=== PATIENT | male | born 1990 | race Caucasian/White ===

== ENCOUNTER 2021-07-13 07:29 | Inpatient (IN) ==
--- NOTE | 2021-07-04 12:52 | Anesthesiology Consultation ---
Date of Service July 04, 2021 Assessment & Plan (1) Encounter for pre-operative examination: Chart Review Chart Review: Acceptable Risk for Surgery and Patient NOT seen in Pre Admission Testing Consults Requested none History Surgery Operation Date: 07/13/21 07:15 Proposed Procedures s Left Ankle Triple Arthrodesis with Autograft, Autograft [place] - Mc Scott DO p Removal of Hardware (4.0 Cannulated) - Mc Scott DO s Percutaneous Tendon Achilles Lengthening - Mc Scott DO Height/Weight Height: 5 ft 10 in Weight: 86.183 kg Allergies Allergy/AdvReac Type Severity Reaction Status Date / Time No Known Allergies Allergy Verified 07/04/21 08:35 Medications Home Medications Medication Instructions Recorded Confirmed Last Taken Garlic Otc 2 tab PO QPM 07/04/21 07/04/21 Unknown ibuprofen 200 mg tablet 200 mg PO Q6H PRN 07/04/21 07/04/21 Unknown zinc 50 mg tablet 50 mg PO QPM 07/04/21 07/04/21 Unknown Past Medical History Medical History No known health problems Past Family History Family History Mother Family history of diabetes mellitus Past Surgical History Surgical History History of foot surgery LEFT Social History Smoking Status: Current every day smoker Smoking cigarettes per day: 10 CIGS A DAY Do You Dip or Chew Tobacco: No Hx Alcohol Use: No Hx Substance Use: No
--- NOTE | 2021-07-12 08:50 | History & Physical Report ---
Date of Service July 12, 2021 Assessment & Plan (1) Traumatic arthritis of left foot: Plan: Schedule a left triple arthrodesis with autografting, removal hardware from navicular and cuboid, autograft harvest calcaneus, perc. JENNI for 07.13.21. All potential risks, benefits, complications, alternatives, and rehab have been discussed with the patient and he wishes to proceed. Will plan for ASA 81 mg BID x 4 wks for post operative DVT prophylaxis. (2) Retained orthopedic hardware: (3) Achilles tendon contracture, left: History of Present Illness Chief Complaint: left foot pain Primary Care Provider: NO PCP This is a patient who sustained a left foot injury in 2008 and underwent an ORIF of the navicular and cuboid bone fx's. He progressed well but over the past couple of years, the pain has worsened. He had recent x-rays and a CT scan that confirmed healed fx's and hindfoot DJD. He is now being set up for surgical tx. Allergies Allergy/AdvReac Type Severity Reaction Status Date / Time No Known Allergies Allergy Verified 07/04/21 08:35 Home Medications Medication Instructions Recorded Confirmed Type Garlic Otc 2 tab PO QPM 07/04/21 07/04/21 History ibuprofen 200 mg tablet 200 mg PO Q6H PRN 07/04/21 07/04/21 History zinc 50 mg tablet 50 mg PO QPM 07/04/21 07/04/21 History Past Med/Surg History Medical History No known health problems Surgical History History of foot surgery LEFT Family History Mother Family history of diabetes mellitus Social History (Updated 07/04/21 @ 08:57 by Quin Wells RN) Smoking Status: Current every day smoker Cigarettes Per Day: 10 CIGS A DAY; Second Hand Exposure: No; Hx Alcohol Use: No Hx Substance Use: No Preferred Language: [place]ian Communication Ability: Effective Plastics Technician Required: No Beliefs That Will Affect Care: None Current Living Situation: Spouse and Family Current Living Situation Comment: LIVES WITH SPOUSE, 2 SONS current occupational status: employed current occupation: SELF EMPLOYED HOUSE CONSTRUCTION Feels Safe at Home: Yes Assistive Devices: Denture - Upper and Denture - Lower Physical Exam Constitutional: well developed and well nourished; no acute distress ENMT: external ear and nose normal, oropharynx normal Neck: trachea midline Respiratory: normal respiratory effort, lungs clear to auscultation Cardiovascular: Rate/Rhythm: regular rate and regular rhythm Gastrointestinal (Abdomen): normal bowel sounds, soft, nontender, no hepat osplenomegaly Musculoskeletal: Ankle: + surgical incision (left: healed surgical incisions), + limited ROM of ankle (left with dorsiflexion, inversion, eversion) and + joint line tenderness (ankle) (left talonavicular, calcaneocuboid); no skin erythema and no ecchymosis Skin: no rashes, warm and dry Trauma: no evidence of skin trauma Neurologic: normal touch/pain/proprioception Psychiatric: A+Ox3, euthymic affect Speech: normal rate/rhythm/volume of speech Lymphatic: no cervical or axillary lymphadenopathy
[~2021-07-13 07:29] MED LIST: LR 15ML/HR IV SCH; ROPIVACAINE 0.5% 5 MG/ML 30 ML VIAL ONE; ceFAZolin 2000MG 2,000 MG/15 ML SYR IV SCH
[2021-07-13] MEDS ORDERED: ePHEDrine sulfate 50 MG/ML AMP IV PRN (08:17)
[2021-07-13] MEDS ORDERED: fentaNYL citrate 100 MCG/2 ML VIAL IV PRN (08:17)
[2021-07-13] MEDS ORDERED: ONDANSETRON INJ 2 MG/ML 2 ML VIAL IV PRN ×3 (08:17→17:09)
[2021-07-13] MEDS ORDERED: ATROPINE SULFATE 0.1 MG/ML 10ML SYR IV PRN (08:17)
[2021-07-13] MEDS ORDERED: DEXAMETHASONE SOD INJ 4 MG/ML VIAL ONE (08:27)
[2021-07-13] MEDS ORDERED: LIDOCAINE 2% 2 ML VIAL/AMP(20MG/ML) INFIL ONE (08:27)
[2021-07-13] MEDS ORDERED: fentaNYL citrate 100 MCG/2 ML VIAL ONE ×2 (08:27→09:23)
[2021-07-13] MEDS ORDERED: MIDAZOLAM HCL 1 MG/ML 2ML VIAL ONE (08:27)
[2021-07-13] MEDS ORDERED: PROPOFOL IV EMULSION 10 MG/ML 20 ML VIAL IV ONE (08:27)
[2021-07-13] MEDS ORDERED: ONDANSETRON INJ 2 MG/ML 2 ML VIAL ONE ×2 (08:27→12:40)
--- NOTE | 2021-07-13 08:42 | History & Physical Bridge Note ---
Date of Service July 13, 2021 History & Physical Bridge Note I have examined the patient, reviewed the History & Physical and in the interval since the performance of the History & Physical I have noted the following changes of clinical significance: no changes noted
[2021-07-13] MEDS ORDERED: ceFAZolin 330 MG/ML 1 GM VIAL ONE (09:03)
[2021-07-13] MEDS ORDERED: HYDROmorphone INJ 2 MG/ML SYR/VIAL ONE (11:42)
[2021-07-13] MEDS ORDERED: LABETALOL HCL IV 5 MG/ML 20ML IV ONE (11:47)
[2021-07-13] MEDS ORDERED: HYDROmorphone INJ 0.5 MG/0.5 ML SYR IV PRN ×2 (12:35→17:09)
[2021-07-13] MEDS ORDERED: oxyCODONE HCL IR 5 MG TAB (IMMEDIATE RELEASE) PO PRN (12:35)
--- NOTE | 2021-07-13 13:05 | Post Operative Brief Note ---
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: (2) Retained painful deep bone orthopedic hardware navicular and cuboid 2 separate areas (3) Achilles tendon contracture, left: I identified the patient and participated in the time-out.: Yes Procedure Operation Date: 07/13/21 09:30 Actual Procedures s Left Ankle Triple Arthrodesis with application autograft, Autograft [place] left calcaneus - Mc Scott DO p Removal of Hardware (4.0 Cannulated) from navicular and removal hardware plate and screws from cuboidBrameeta Scott DO s Percutaneous Tendon Achilles Lengthening(Left) - Mc Scott DO Surgeon Mc Scott DO Collet Driller Raheem Kidd PA-C Estimated Blood Loss 15 Findings Consistent with Post-Op Diagnosis Anesthesia Type General Regional Complications none Disposition Accompanied Patient To Recovery: Yes
--- NOTE | 2021-07-13 13:39 | Anesthesiology Progress Note ---
Date of Service July 13, 2021 Anesthesia Post Procedure Vital Signs Vital Signs: Temp Pulse Pulse Resp BP Pulse Ox 07/13/21 13:35 36.3 C L 81 14 128/73 96 07/13/21 13:25 81 17 138/70 97 07/13/21 13:15 93 H 16 120/70 100 07/13/21 13:05 75 15 121/64 100 07/13/21 12:56 36.3 C L 76 16 128/70 99 07/13/21 07:58 36.7 C 81 20 138/75 100 Transfer of Care Handoff Completed per policy Notes Mental Status: alert / awake / arousable and participated in evaluation Patient Amnestic to Procedure: Yes Nausea / Vomiting: adequately controlled Pain: adequately controlled Airway Patency, RR, SpO2: stable & adequate BP & HR: stable & adequate Hydration State: stable & adequate Anesthetic Complications: no major complications apparent
[2021-07-13] MEDS: oxyCODONE HCL IR 5 MG TAB (IMMEDIATE RELEASE) PO PRN (14:02)
--- NOTE | 2021-07-13 14:09 | Fluoroscopy Report ---
FL ankle LT min 3V RTN CLINICAL HISTORY: Left ankle triple arthrodesis. COMPARISON STUDY: Left foot radiographs March 10, 2013. FLUOROSCOPY TIME: 18 seconds. FLUOROSCOPIC IMAGES: 2 FINDINGS: Fluoroscopy was provided during left ankle triple arthrodesis. Cannulated screws fixate the subtalar, talonavicular and calcaneocuboid articulations. Hardware is intact. There are no unexpecte d radiopaque foreign bodies. IMPRESSION: Fluoroscopy provided during left ankle triple arthrodesis. ACT 112: Negative or not required by law. Electronically signed by: Kapil Sarah M.D. 07/13/2021 2:08 PM
[2021-07-13] MEDS ORDERED: bisacodyL 10 MG SUPP PR PRN (17:09)
[2021-07-13] MEDS ORDERED: NALOXONE HCL 0.4 MG/1 ML VIAL/CARP IV PRN (17:09)
[2021-07-13] MEDS ORDERED: MAGNESIUM HYDROXIDE SUSP 30 ML UDC PO PRN (17:09)
[2021-07-13] MEDS: ceFAZolin 2000MG 2,000 MG/15 ML SYR IV SCH (17:47)
[2021-07-13] MEDS: SODIUM CHLORIDE 0.9% 1000ML 1,000 ML IV SCH (17:47)
[2021-07-13] MEDS: ASPIRIN 81 MG ECTAB PO SCH (20:36)
[2021-07-13] MEDS: DOCUSATE SODIUM 100 MG CAP PO SCH (20:36)
--- NOTE | 2021-07-13 20:46 | Operative Report (OR) ---
DATE OF SERVICE: 07/13/2021 PREOPERATIVE DIAGNOSES: 1. Left hindfoot traumatic osteoarthritis. 2. Painful retained hardware in the cuboid and navicular bones (2 separate sites). 3. Achilles tendon contracture. POSTOPERATIVE DIAGNOSES: 1. Left hindfoot traumatic osteoarthritis. 2. Painful retained hardware in the cuboid and navicular bones (2 separate sites). 3. Achilles tendon contracture. PROCEDURE: 1. Left triple arthrodesis with application of autograft. 2. Autograft harvest, left calcaneus. 3. Removal of hardware 4.0 cannulated screws x2 with washers from the navicular and removal of hardware, deep bone plate and 4 screws in the cuboid. 4. Percutaneous tendo-Achilles lengthening. SURGEON: Mc Scott DO. MARITIME OFFICER: Raheem Kidd PA-C who was present for patient positioning, sterile prep and drape, management of retractors and instruments. He was present through the critical portions of the case including wound closure, application of sterile dressing and transport of the patient to recovery. ANESTHESIA: General, regional. SPECIMENS: None. DRAINS: None. COMPLICATIONS: None. BLOOD LOSS: 15 mL. PERTINENT HISTORY: This is a 31-year-old gentleman who sustained traumatic fractures of his navicular and cuboid bones approximately 14 years prior. The patient underwent open reduction and internal fixation, had a successful outcome for approximately 13 years, then began having chronic progressive and worsening left hindfoot and ankle pain. He attempted and failed conservative management including shoewear modification, activity modification, anti-inflammatories, rest, use of brace, use of an assistive device, physician-directed home exercises and steroid injections. Radiographs and CT scans demonstrate progressive chronic and worsening hindfoot degenerative arthritis involving the subtalar, calcaneocuboid and talonavicular joints with retained hardware. The patient was scheduled for surgery as indicated. All potential risks, benefits, complications, alternatives, rehab potential for incomplete relief of symptoms, need for further surgery, DVT, PE, , persistent pain, swelling, scarring, weakness, neurovascular injury, wound complications, hardware failure, nonunion, malunion, bone fracture were discussed with the patient. The patient decided to proceed with the procedure as indicated. DESCRIPTION OF PROCEDURE: The patient was taken to the Operating Suite, placed supine on the Operating Room table, after consent and identification of the proper operative site, the patient was anesthetized. LMA was placed. Tourniquet was placed high on the left lower extremity. Left lower extremity was then sterilely prepped and draped in the usual fashion. Exsanguinated with an Esmarch bandage and tourniquet inflated to 350 mmHg. Next, the foot was held in dorsiflexion and a three-part percutaneous incision was made with an 11-blade scalpel to lengthen the Achilles tendon using standard technique. Next, the stab incisions were then closed using interrupted skin sola. Next, the 15-blade scalpel was used to make an incision from the distal aspect of the fibula to the base of the fourth metatarsal. The incision was deepened through subcutaneous tissue and meticulous hemostasis was obtained with electrocautery. Subcutaneous nerves were identified, retracted and protected. The extensor digitorum brevis was identified and was sharply elevated from the anterior process of the calcaneus revealing the sinus tarsi. Next, the sinus tarsi was debrided carefully with a rongeur and 15-blade scalpel. A cervical lamina contracts paralegal was placed in the sinus tarsi opening the subtalar joint. Subtalar joint was then prepared with the use of a curette and rongeur to resect the articular surfaces down to subchondral bleeding bone. Irrigation was performed with sterile normal saline and then 2-mm drill bit was used to further prepare the joint surface with multiple drill holes in both surfaces of the subtalar joint and a small osteotome and mallet were used to fish scale the joint surfaces to increase surface area and bleeding. The visible plate and screws were removed with a screw wagon driver and osteotome. The remaining holes were curetted with a small curette. Next, the calcaneocuboid joint was then entered with the 15-blade scalpel, debrided of soft tissue and then a lamina contracts paralegal was placed in the joint opening it for preparation with a curette and rongeur to remove any articular surface down to subchondral bleeding bone. Next, the 2-mm drill bit was used to further prepare the joint with multiple drill holes into the joint and then a small osteotome and mallet were used to fish scale the joint. Next, the 15-blade was used to make an incision from the distal aspect of the tibia to the base of the naviculocuneiform joint. The incision was deepened through subcutaneous tissue. Meticulous hemostasis obtained with electrocautery. A Weitlaner retractor was placed in the incision. The greater saphenous vein was identified, retracted and protected. The screws and washers X2 were removed with a screw wagon driver. The holes were curetted to encourage bleeding. The capsule of the talonavicular joint was then entered sharply with a 15-blade scalpel and elevated both superior and inferiorly. A small [place] was placed on the neck of the talus and further soft tissue elevation was performed with the 15-blade scalpel until the talonavicular joint was clearly visualized. The articular surface was then debrided with curette and rongeur and a cervical lamina contracts paralegal was placed in the joint. Next, it was irrigated with sterile normal saline and a 2-mm drill bit was used to make multiple holes in the joint surfaces and fish scaling was performed with a small osteotome and mallet. Next, the medial and lateral incisions were irrigated with sterile normal saline and the joint surfaces were then aligned appropriately based on alignment of the lower extremity and the kneecap. Subtalar joint was aligned and then a 7.3-mm cannulated guidepin was driven from the superior aspect of the talus across the subtalar joint into the calcaneus under fluoroscopic control. Calcaneal autograft was harvested through a separate incision made on the lateral aspect of the calcaneal tuberosity. The incision was deepened through the subcutaneous tissue with a tenotomy scissor. An osteotome was used to open a window of bone to allow harvest of the cancelous bone with a curette. The window was irrigated and closed with a 2-0 Vicryl. The skin was closed with 3-0 Vicryl and 4-0 nylon. All incisions were irrigated with saline until clear. The autograft was placed in the bony interspaces of the triple arthrodesis. Next, an appropriate length 7.3-mm long-thread screw was placed under fluoroscopic control and countersunk slightly. Next, the guidepin was removed. Next, 2.25-mm guidepins x 2 were used to stabilize the talonavicular joint in appropriate alignment and then the calcaneocuboid joint was then stabilized with appropriate alignment under fluoroscopic control. Next, appropriate length of 7.3-mm long-thread cannulated screws were placed across the talonavicular and calcaneocuboid joints respectively under fluoroscopic control. All guidepins were removed. Wounds were irrigated with sterile normal saline and bone graft was then packed in and around the subtalar, talonavicular and calcaneocuboid joints which was comprised of 15 cc of cancellous bone chips. The extensor digitorum brevis was then closed back to its origin with interrupted 2-0 Vicryl sutures. The talonavicular joint capsule was closed using 2-0 Vicryl sutures. The dermis was closed using buried interrupted 3-0 Vicryl sutures medially and laterally and then skin incisions were closed using 4-0 Nylon sutures. A sterile compressive dressing and bulky Alexandre-Mata plaster splint was applied, overwrapped with an Paras wrap. The tourniquet was released. DISPOSITION: Patient awakened and taken to Recovery in stable condition. Job ID: [id number] [facility]
[2021-07-13] MEDS: ACETAMINOPHEN 500 MG TAB PO SCH (21:30)
[2021-07-14] MEDS: ceFAZolin 2000MG 2,000 MG/15 ML SYR IV SCH (01:09)
[2021-07-14] MEDS: SODIUM CHLORIDE 0.9% 1000ML 1,000 ML IV SCH (02:25)
[2021-07-14] MEDS: ACETAMINOPHEN 500 MG TAB PO SCH (05:19)
[2021-07-14] MEDS: oxyCODONE HCL IR 5 MG TAB (IMMEDIATE RELEASE) PO PRN ×2 (06:09→09:15)
[2021-07-14 07:14] VITALS: TEMP 98.6; O2SAT 97
[2021-07-14] MEDS: DOCUSATE SODIUM 100 MG CAP PO SCH (07:43)
[2021-07-14] MEDS: ASPIRIN 81 MG ECTAB PO SCH (07:43)
--- NOTE | 2021-07-14 08:07 | Orthopedic Progress Note ---
Date of Service July 14, 2021 Assessment & Plan (1) Traumatic arthritis of left foot: Plan: 31 yo male stable POD #1 s/p left hindfoot hardware removal, triple arthrodesis, perc TA lengthening 1. Med management 2. DVT prophylaxis- ASA, SCDs 3. PT/OT 4. D/C planning- home w/ HH Admission and Anticipated Discharge Date Admission Date: July 13, 2021 Subjective Pt resting in bed, no complaints, pain controlled Physical Exam Physical Exam: Dressing intact left ankle, toes mobile Results & Data ([facility]) Vital Signs (Past 12 Hours) Vital Signs Temp Pulse Resp BP Pulse Ox 07/14/21 07:13 37.0 C 63 16 116/69 97 07/14/21 02:56 36.9 C 55 L 14 116/66 98 07/13/21 23:16 36.8 C 66 16 115/55 L 97
--- NOTE | 2021-07-14 08:08 | Orthopedic Progress Note ---
Date of Service July 14, 2021 Assessment & Plan (1) Traumatic arthritis of left foot: Plan: 31 yo male stable POD #1 s/p left hindfoot hardware removal, triple arthrodesis, perc TA lengthening 1. Med management 2. DVT prophylaxis- ASA, SCDs 3. PT/OT 4. D/C planning- d/c home Admission and Anticipated Discharge Date Admission Date: July 13, 2021 Subjective Pt resting in bed, no complaints, pain controlled Physical Exam Physical Exam: Dressing intact left ankle, toes mobile Results & Data ([facility]) Vital Signs (Past 12 Hours) Vital Signs Temp Pulse Resp BP Pulse Ox 07/14/21 07:13 37.0 C 63 16 116/69 97 07/14/21 02:56 36.9 C 55 L 14 116/66 98 07/13/21 23:16 36.8 C 66 16 115/55 L 97
[2021-07-14 09:34] VITALS: BP 113/65; PULSE 80
--- NOTE | 2021-07-18 16:46 | Discharge Summary ---
Date of Service July 18, 2021 Admission HPI Per Admitting Provider This is a patient who sustained a left foot injury in 2008 and underwent an ORIF of the navicular and cuboid bone fx's. He progressed well but over the past couple of years, the pain has worsened. He had recent x-rays and a CT scan that confirmed healed fx's and hindfoot DJD. He is now being set up for surgical tx. Principal Diagnosis left hindfoot post traumatic osteoarthritis Discharge Exam Constitutional well developed and well nourished; no acute distress ENMT external ear and nose normal, oropharynx normal Neck trachea midline Respiratory normal respiratory effort, lungs clear to auscultation Cardiovascular Rate/Rhythm: regular rate and regular rhythm Gastrointestinal (Abdomen) normal bowel sounds, soft, nontender, no hepatosplenomegaly Musculoskeletal Ankle: + surgical incision (left: posterior/stirrup splint in place) and + limited ROM of ankle (left with dorsiflexion, inversion, eversion); no skin erythema and no ecchymosis Skin no rashes, warm and dry Trauma: no evidence of skin trauma Neurologic normal touch/pain/proprioception Psychiatric A+Ox3, euthymic affect Speech: normal rate/rhythm/volume of speech Lymphatic no cervical or axillary lymphadenopathy Discharge Data Allergies Allergy/AdvReac Type Severity Reaction Status Date / Time No Known Allergies Allergy Verified 07/13/21 07:55 Procedures Performed Operation Date: 07/13/21 09:30 Actual Procedures s Left Ankle Triple Arthrodesis with Autograft, Autograft [place](Left) - Mc Smith DO p Removal of Hardware (4.0 Cannulated)(Left) - Mc Smith DO s Percutaneous Tendon Achilles Lengthening(Left) - Mc Smith DO Ordered Studies 07/13/21 FL ankle LT 2V Routine 07/13/21 05:00 US - OR guided needle placemen Routine Hospital Course (1) Traumatic arthritis of left foot: 31 yo male stable POD #1 s/p left hindfoot hardware removal, triple arthrodesis, perc TA lengthening 1. Med management 2. DVT prophylaxis- ASA, SCDs 3. PT/OT 4. D/C planning- home w/ HH Total Time Total Time Spent Total Time Spent (In Minutes): 20 Discharge Plan Discharge Items Patient Disposition: Home - Self-Care Reason For Visit: TRIPLE ARTHRODESIS Discharge Diagnosis: Left foot posttraumatic osteoarthritis Activity: Per Instructions section Non-emergency contact: Surgeon Call non-emergency contact if: your pain is not controlled, your pain is worsening and your temperature is above 101 Follow-up/Referrals: PCP,NO [Primary Care Provider] - Diet: Regular Addtl Attending Provider Instructions: ACTIVITY RECOMMENDATIONS: Limitations: No weight bearing to affected limb at all times. SPECIAL CARE INSTRUCTIONS: * Take Aspirin 81 mg every 12 hours for 4 weeks for postoperative blood clot prophylaxis. Start the first dose tonight. * Some drainage onto the dressing is normal and is no cause for alarm. * Some swelling is natural especially after walking. * When resting, keep your foot elevated above the level of your heart. * Call [facility] if you notice: -Increased drainage -Fever over 101 degrees F -Severe constant pain BANDAGE: * Leave bandage/cast in place unless otherwise directed. * Keep bandage/cast dry at all times. FOLLOW UP VISIT WITH DR. SMITH If appointment is not already scheduled: Please call [facility] after you get home today to schedule a follow-up appointment for [address] Smith at . Pending Studies at Discharge: No Stand-Alone Forms: Anesthesia/Sedation, Adult, [facility] Medications and DC Order Prescriptions: New aspirin 81 mg Tablet,Delayed Release (Dr/Ec) 81 mg PO BID 30 Days Qty: 60 RF: 0 acetaminophen [Tylenol Extra Strength] 500 mg Tablet 1,000 mg PO Q8 30 Days Qty: 180 RF: 0 oxycodone 5 mg tablet 5 mg PO Q6H PRN (Reason: pain) Qty: 18 RF: 0 Continued zinc 50 mg Tablet 50 mg PO QPM RF: 0 Garlic Otc 2 tab PO QPM RF: 0 Discontinued ibuprofen 200 mg Tablet 200 mg PO Q6H PRN (Reason: Pain) RF: 0 Discharge Orders: Discharge Order (Routine); Ordered 07/14/21 Ordered By: Jonn Amador/Other Patient Handouts: DVT Post Op Prevention Admission Data Admit Date/Time: 07/13/21 15:35 Attending Provider: Mc Smith Admit Provider: Mc Smith Primary Care Provider: PCP,NO Other Interventions: Discharge Summary Assessment (RN) Last Done: 07/14/21 09:25
== END 2021-07-14 11:09 | disposition home or self-care (01) | DRG 494 ==
LOC: ASU 07:29 → 3N 15:35
DX: M19.172 Post-traumatic osteoarthritis, left ankle and foot; S92.252S Displaced fracture of navicular [scaphoid] of left foot, sequela; F17.200 Nicotine dependence, unspecified, uncomplicated; Z83.3 Family history of diabetes mellitus; X58.XXXS Exposure to other specified factors, sequela; M24.575 Contracture, left foot